=== PATIENT | female | born 1955 | race Caucasian/White ===

== ENCOUNTER 2022-02-07 09:51 | Outpatient (CLI) | payer MEDICARE, OTHER, SELFPAY ==
[2022-02-07 14:26] LABS: Kit Draw Collected
== END 2022-02-07 09:52 | disposition home or self-care (01) ==
LOC: ANHGOSHLAB 09:54
PROVIDERS: PCP Family Medicine; Visit Provider Physician Assistant
DX: Z12.31 Encounter for screening mammogram for malignant neoplasm of breast (principal); Z78.0 Asymptomatic menopausal state; Z11.59 Encounter for screening for other viral diseases; M25.561 Pain in right knee; I10 Essential (primary) hypertension
CPT/HCPCS: 36415

== ENCOUNTER 2022-06-09 16:07 | Outpatient (CLI) | payer MEDICARE, OTHER, SELFPAY ==
[2022-06-09 19:46] LABS: Kit Draw Collected
== END 2022-06-09 16:08 | disposition home or self-care (01) ==
LOC: ANHGOSHLAB 16:09
PROVIDERS: PCP Family Medicine; Visit Provider Family Medicine
DX: I10 Essential (primary) hypertension (principal)
CPT/HCPCS: 36415